=== PATIENT | female | born 1960 | race Caucasian/White ===

== ENCOUNTER → 2017-04-28 | Emergency (ER) | payer OTHER ==
[~2017-04-28] VITALS: Ht 157.5 cm; Wt 59.0 kg
[~2017-04-28] MED LIST: ACETAMINOPHEN325 M1 PO; ADULT LOW DOSE81 MG; ALBUTEROL2 PUFFS/17 IN; ALEVE220 MG PO; B12-METHYL1000 MCG PO; CELEXA20 MG PO; DEPRESSION MED PO; DICLOFENAC SODI75 M3; DICLOFENAC SODI75 M3 PO; HABITROL21 MG/24 H TD; HYDROCODONE-APA1 TA1 PO; MELOXICAM7.5 MG PO; MOTRIN 600MG.600 MG PO; NORCO 325 MG-51 TAB PO; PREDNISONE 20MG20 MG PO; SYMBICORT1 AE1 IH; TRAMADOL 50MG T50 MG PO; TYLENOL ES500 M1 PO; VISTARIL25 MG
--- NOTE | 2017-04-28 16:04 | Urgent Treatment Center Report ---
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 Location if Accident:Work Onset of symptoms date/time:/ or onset unknown for:MEDICAL HX UNKNOWN Have you (or family members/close friends) recently traveled outside the [place]? N If Yes, where/when: Have you had exposure to infectious disease within the past month? TB? Other? Specify: Patient states that she was raking tobacco yesterday when she felt a pop in her left shoulder State that she is now having pain in the shoulder that has continued and she got worried and so she came in to get checked out. State that she is not having any numbness or tingling just having pain when she tries to raise it up ALLERGIES Coded Allergies: No Known Drug Allergies (-- 06/30/16) Home Medications Reported Medications Meloxicam (Meloxicam 7.5MG) 7.5 MG PO DAILY #30 TAB CITALOPRAM HYDROBROMIDE (Citalopram HBr) 20 MG PO DAILY Aspirin (Adult Low Dose Aspirin EC) Diclofenac Sodium (Diclofenac Sodium Dr) Hydroxyzine Pamoate (Vistaril) History Medical History General CAD? No Angina: No VT: No Hypertension? No Hyperlipidemia? No CHF? No DVT? No PE? No COPD? Yes Asthma? No Anemia? No GERD? Yes Gastric ulcers? No GI Bleed? No Hernia? No Thyroid Problems? No Hypothyroidism? No CVA? No Seizures? No Diabetes? No Renal Insuffiency? No UTI? No Stones? No BPH? No GB Disease: No Nephritic Syndrome? No Asplenia? No Hepatitis? No Sickle Cell Disease? No Arthritis? Yes Migraines? No Cataracts? No Glaucoma? No MRSA? No HIV? No TB? No Anxiety? No Depression? Yes Cancer? No Immunization HX DT/Tetanus 1-4 Years Ago Flu 2015- Flu Season Pneumonia Received In Past Surgical Hx Previous Surgery?Y Appendix Family History Family HX Diabetes Yes CAD Yes Hypertension Yes Hyperlipidemia Yes Cancer No TB No Social History Smoking Hx Smoker: Current Every Day Smoker Tobacco: Yes Type Cigarettes Packs/day < 1 Pack Alcohol Alcohol: No Review of Systems All Other Systems Reviewed and Negative Physical Exam Vital Signs Vital Signs Date Time Temp Pulse Resp B/P Pulse O2 O2 Flow FiO2 Ox Delivery Rate 04/28 1527 98.2 71 20 129/84 95 General Appearance normal appearance, WD/WN, no apparent distress Respiratory Status Yes: trachea midline, chest symmetrical. No: respiratory distress. Cardiovascular normal exam, regular rate/rhythm, no peripheral edema Extremities Left shoulder pain after raking tobacco yesterday and feeling a pop in her shoulder, denies numbness, good pulses good cap refill no swelling Pain with movement of arm Neurologic alert, normal exam, oriented x 3 Medical Decision Making LABS/Meds/Orders Pt receiving controlled substance in ED? No Results/Orders Orders Procedure Date/time Status [id number] VIEWS 04/28 153 Active XRAY/CT/US XRAY/CT/US XRAY shoulder XR interpretation by reviewed by me Xray Results no fracture seen Comment Discussed with Dr Anjel Fagan [facility] Progress Notes Comment Patient states that she currently already on a anti-inflammatory medication that she takes twice daily Departure Departure Time of Disposition 1533 Disposition DC Home or Self Care(routine) Clinical Impression Primary Impression: Shoulder strain Qualifiers: Encounter type: initial encounter Laterality: left Qualified Code: S46.912A - Strain of unspecified muscle, fascia and tendon at shoulder and upper arm level, left arm, initial encounter Condition STABLE Referrals LARA MICHAEL (Family): 3 Days-Call Office Patient Instructions DI for Shoulder Sprain, Shoulder Sprain Additional Instructions *RICE, Rest the extremity, Ice 15-20 minutes 3-4 times daily, Compress- wear the topher wrap as discussed as much as possible to help reduce swelling and pain, Elevate the extremity when at rest *Topher wrap is for support and help control swelling, use it except in the shower. Be sure that is not to tight but not to loose either *Elevate when resting *Ibuprofen 600-800mg every 6-8 hours as needed for pain an inflammation. If need something more can take Tylenol in between doses of Ibuprofen to help Immediately follow up for new or worsening of symptoms, or no noticeable improvement over the next 3-5 days Wear sling and follow up with Orthopedics call tomorrow and make appointment Continue to take previously prescribed anti inflammatory medication for pain Discharge Counseling Counseled pt/family regarding diagnosis, test results, medications/RX, home care at 1600
[2017-04-28 16:14] VITALS: BP 129/84
--- NOTE | 2017-04-28 16:50 | RADIOLOGY REPORT PS360 ---
[id number] VIEWS HISTORY: Injury with pain FELT POP YESTERDAY IN LT SHOULDER ORDERING PHYSICIAN: MAX LEACH APRN PATIENT AGE: 57 years COMPARISON: None FINDINGS: No fracture or dislocation. No lytic or blastic change. There is normal mineralization. Moderate subacromial stenosis with a somewhat low-lying distal clavicle and low lying acromion. No significant bony spurring IMPRESSION: Subacromial stenosis otherwise negative
--- OUTSIDE RECORDS SUMMARY | 2017-04-30 17:34 | External Medical Summary Rpt | CCD ---
Demographics Preferred Language Mauritian Marital Status Unknown Orthodox Affiliation Unknown Race Unknown Ethnic Group Unknown Author Author , JOSE E DORANTES Address Unknown Phone jose Immunization No patient found.
--- OUTSIDE RECORDS SUMMARY | 2017-04-30 17:34 | External Medical Summary Rpt | CCD ---
Demographics Preferred Language Citizen Of [place] Marital Status Unknown Orthodoxy Affiliation Unknown Race Unknown Ethnic Group Unknown Author Author , JOSE E DORANTES Address Unknown Phone jose Immunization No patient found.
--- OUTSIDE RECORDS SUMMARY | 2017-04-30 17:34 | External Medical Summary Rpt | CCD ---
Author Author , VUKISHAN Annie JOSE E Address Unknown Phone [email or web address] [email or web address] Care Magazine Editor Name Role Phone A Benedict FRAIRE MD PSC, Keyonna Unavailable Unavailable Benedict FRAIRE MD PSC BHATT ALL, BHATT ALL Unavailable Unavailable FIELD AMB, FIELD AMB Unavailable Unavailable SUNDAR SANDRA, SUNDAR Unavailable Unavailable SANDRA [facility], Unavailable Unavailable [facility] Unavailable Unavailable [facility], [facility], Unavailable Unavailable [facility], Unavailable Unavailable [facility] PETTEY JAM, PETTEY Unavailable Unavailable JAM Purpose Continuity of Care Document - 03-22-2014 through 2016 Problems Code Diagnosis DOS Provider Status [id number] PAIN IN 07-09-2015 [facility] RIGHT KNEE PHYSICIANS GROUP 09306 UNSPECIFIED 01-24-2015 [facility] SITE OF PHYSICIANS ANKLE GROUP SPRAIN AND STRAIN 54038 PAIN IN 01-22-2015 [place] [facility], MEDICAL ANKLE AND IMAGING ASS FOOT 7271 BUNION 01-22-2015 [facility] 7295 PAIN IN 01-22-2015 [place] SOFT MEDICAL TISSUES OF IMAGING ASS LIMB 7350 HALLUX 01-22-2015 [place] [facility] 9597 INJURY 01-22-2015 [place] OTHER&UNSPE MEDICAL CIFIED KNEE IMAGING ASS LEG ANKLE&FOOT 8242 CLOSED 01-09-2015 [place] 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 496 CHRONIC 06-07-2014 Keyonna FRAIRE AIRWAY PSC OBSTRUCTION NEC 3670 HYPERMETROP 03-22-2014 [facility] SHIPMAN Procedures Procedure DOS Code Location Performer Comment THERAPEUT 06343 [facility] SUNDAR 5 PHYSICIAN SANRDA PROPHYLAC S GROUP TIC/DX INJECTION SUBQ/IM INJECTION J1040 [facility] SUNDAR 5 PHYSICIAN SANDRA METHYLPRE S GROUP DNISOLONE ACETATE 80 MG INJECTION J1885 [facility] SUNDAR 5 PHYSICIAN SANDRA KETOROLAC S GROUP TROMETHAM INE PER 15 MG RADEX 73670 [place] [facility] ALL ANKLE 5 MEDICAL COMPLETE IMAGING MINIMUM 3 ASS VIEWS RADEX 53914 [place] [facility] ALL FOOT 5 MEDICAL COMPLETE IMAGING MINIMUM 3 ASS VIEWS RADEX 91130 [place] [facility] ANKLE 5 MEDICAL COMPLETE IMAGING MINIMUM 3 ASS VIEWS RADIOLOGI 03888 [place] [facility] C 5 MEDICAL EXAMINATI IMAGING ON TIBIA ASS & FIBULA 2 VIEWS OPHTH 70303 [facility] 4 GRE GRE XM&EVAL COMPRE NEW PT 1/> VST Encounters Encounter Start End Date Code Location Performer Type Date OFFICE 43793 [facility] SUNDAR OUTPATIEN 5 5 PHYSICIAN SANDRA T VISIT S GROUP 15 MINUTES OFFICE 74728 [facility] HARLEENTEFrank OUTPATIEN 5 5 PHYSICIAN SHAHRZAD T NEW 30 S GROUP MINUTES [facility] - [facility] 5 [facility] INC T OFFICE 06671 [facility] SUN[facility]AR OUTPATIEN 5 5 PHYSICIAN SANDRA T NEW 20 S GROUP MINUTES EMERGENCY 18855 TIFFANIE KWOK 5 5 PHYSICIAN SANDRA [facility] T VISIT MODERATE SEVERITY OFFICE 20478 A C FIELD AMB OUTPATIEN 4 4 YEE KELLEY T VISIT PSC 15 MINUTES
--- OUTSIDE RECORDS SUMMARY | 2017-04-30 17:34 | External Medical Summary Rpt | CCD ---
Author Author , VUKISHAN Organization JOSE E Address Unknown Phone [email or web address] Care Team Providers Care Biological Sciences Professor Name Role Phone Keyonna FRAIRE MD PSC, Keyonna Unavailable Unavailable Benedict FRAIRE MD PSC BHATT ALL, BHATT ALL Unavailable Unavailable FIELD AMB, FIELD AMB Unavailable Unavailable SUNDAR SANDRA, SUNDAR Unavailable Unavailable SANDRA [facility], Unavailable Unavailable [facility] Unavailable Unavailable [facility], [facility], Unavailable Unavailable [facility], Unavailable Unavailable [facility] PETTEY JAM, PETTEY Unavailable Unavailable JAM Purpose Continuity of Care Document - 03-22-2014 through 2016 Problems Code Diagnosis DOS Provider Status [id number] PAIN IN 07-09-2015 [facility] RIGHT KNEE PHYSICIANS GROUP 56111 UNSPECIFIED 01-24-2015 [facility] SITE OF PHYSICIANS ANKLE GROUP SPRAIN AND STRAIN 32301 PAIN IN 01-22-2015 [place] [facility], MEDICAL ANKLE AND IMAGING ASS FOOT 7271 BUNION 01-22-2015 [facility] 7295 PAIN IN 01-22-2015 [place] SOFT MEDICAL TISSUES OF IMAGING ASS LIMB 7350 HALLUX 01-22-2015 [place] [facility] 9597 INJURY 01-22-2015 [place] OTHER&UNSPE MEDICAL CIFIED KNEE IMAGING ASS LEG ANKLE&FOOT 8242 CLOSED 01-09-2015 [place] 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 496 CHRONIC 06-07-2014 Keyonna QUINONES MD PSC OBSTRUCTION NEC 3670 HYPERMETROP 03-22-2014 [facility] SHIPMAN Procedures Procedure DOS Code Location Performer Comment THERAPEUT 36375 [facility] SUNDAR SLATER 5 PHYSICIAN SANDRA PROPHYLAC S GROUP TIC/DX INJECTION SUBQ/IM INJECTION J1040 [facility] SUNDAR 5 PHYSICIAN SANDRA METHYLPRE S GROUP DNISOLONE ACETATE 80 MG INJECTION J1885 [facility] SUNDAR 5 PHYSICIAN SANDRA KETOROLAC S GROUP TROMETHAM INE PER 15 MG RADEX 69003 [place] [facility] ALL ANKLE 5 MEDICAL COMPLETE IMAGING MINIMUM 3 ASS VIEWS RADEX 42263 [place] BHATT ALL FOOT 5 MEDICAL COMPLETE IMAGING MINIMUM 3 ASS VIEWS RADIOLOGI 36363 [place] BHATT ALL C 5 MEDICAL EXAMINATI IMAGING ON TIBIA ASS & FIBULA 2 VIEWS RADEX 94284 [place] [facility] ALL ANKLE 5 MEDICAL COMPLETE IMAGING MINIMUM [address] [facility] 4 GRE GRE XM&EVAL COMPRE NEW PT 1/> VST Encounters Encounter Start End Date Code Location Performer Type Date OFFICE 50406 [facility] SUNDAR OUTPATIEN 5 5 PHYSICIAN SANDRA T VISIT S GROUP 15 MINUTES OFFICE 75069 [facility] PETTEFrank OUTPATIEN 5 5 PHYSICIAN SHAHRZAD T NEW 30 S GROUP MINUTES HOSPITAL [facility]IL[facility] - 5 5 [facility] OUTPATIEN INC T OFFICE 03287 [facility] SUNDAR OUTPATIEN 5 5 PHYSICIAN SANDRA T NEW 20 S GROUP MINUTES EMERGENCY 18361 TIFFANIE KWOK 5 5 PHYSICIAN SANDRA [facility] T VISIT MODERATE SEVERITY OFFICE 12149 Keyonna CASTANEDA AMB OUTPATIEN 4 4 YEE KELLEY T VISIT PSC 15 MINUTES
--- OUTSIDE RECORDS SUMMARY | 2017-04-30 17:34 | External Medical Summary Rpt | CCD ---
Author Author , VUKISHAN Organization JOSE E Address Unknown Phone [email or web address] Care Team Providers Care Spinner Operator Name Role Phone Keyonna FRAIRE MD PSC, Keyonna Unavailable Unavailable Benedict FRAIRE MD PSC BHATT ALL, BHATT ALL Unavailable Unavailable FIELD AMB, FIELD AMB Unavailable Unavailable SUNDAR SANDRA, SUNDAR Unavailable Unavailable SANDRA [facility], Unavailable Unavailable [facility] Unavailable Unavailable [facility], [facility], Unavailable Unavailable [facility], Unavailable Unavailable [facility] PETTEY JAM, PETTEY Unavailable Unavailable JAM Purpose Continuity of Care Document - 03-22-2014 through 2016 Problems Code Diagnosis DOS Provider Status [id number] PAIN IN 07-09-2015 [facility] RIGHT KNEE PHYSICIANS GROUP 46302 UNSPECIFIED 01-24-2015 [facility] SITE OF PHYSICIANS ANKLE GROUP SPRAIN AND STRAIN 12999 PAIN IN 01-22-2015 [facility], MEDICAL ANKLE AND IMAGING ASS FOOT 7271 BUNION 01-22-2015 [facility] 7295 PAIN IN 01-22-2015 [facility] SOFT MEDICAL TISSUES OF IMAGING ASS LIMB 7350 HALLUX 01-22-2015 [facility] 9597 INJURY 01-22-2015 [facility] OTHER&UNSPE MEDICAL CIFIED KNEE IMAGING ASS LEG ANKLE&FOOT 8242 CLOSED 01-09-2015 [facility] 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 496 CHRONIC 06-07-2014 Keyonna QUINONES MD PSC OBSTRUCTION NEC 3670 HYPERMETROP 03-22-2014 [facility] SHIPMAN Procedures Procedure DOS Code Location Performer Comment THERAPEUT 84987 [facility] SUNDAR SLATER 5 PHYSICIAN SANDRA PROPHYLAC S GROUP TIC/DX INJECTION SUBQ/IM INJECTION J1040 [facility] SUNDAR 5 PHYSICIAN SANDRA METHYLPRE S GROUP DNISOLONE ACETATE 80 MG INJECTION J1885 [facility] SUNDAR 5 PHYSICIAN SANDRA KETOROLAC S GROUP TROMETHAM INE PER 15 MG RADEX 40756 [facility] BHATT ALL ANKLE 5 MEDICAL COMPLETE IMAGING MINIMUM 3 ASS VIEWS RADEX 08101 [facility] BHATT ALL FOOT 5 MEDICAL COMPLETE IMAGING MINIMUM 3 ASS VIEWS RADIOLOGI 88587 [facility] BHATT ALL C 5 MEDICAL EXAMINATI IMAGING ON TIBIA ASS & FIBULA 2 VIEWS RADEX 83913 [facility] BHATT ALL ANKLE 5 MEDICAL COMPLETE IMAGING MINIMUM 3 ASS VIEWS OPH 58601 [facility] 4 GRE GRE XM&EVAL COMPRE NEW PT 1/> VST Encounters Encounter Start End Date Code Location Performer Type Date OFFICE 11020 [facility] SUNDAR OUTPATIEN 5 5 PHYSICIAN SANDRA T VISIT S GROUP 15 MINUTES OFFICE 05274 [facility] PETTEFrank OUTPATIEN 5 5 PHYSICIAN SHAHRZAD T NEW 30 S GROUP MINUTES HOSPITAL MATILDE - 5 5 [facility] OUTPATIEN INC T OFFICE 25564 [facility] SUNDAR OUTPATIEN 5 5 PHYSICIAN SANDRA T NEW 20 S GROUP MINUTES EMERGENCY 35083 TIFFANIE KWOK 5 5 PHYSICIAN SANDRA [facility] T VISIT MODERATE SEVERITY OFFICE 64948 Keyonna CASTANEDA AMB OUTPATIEN 4 4 YEE KELLEY T VISIT PSC 15 MINUTES
--- OUTSIDE RECORDS SUMMARY | 2017-04-30 17:34 | External Medical Summary Rpt | CCD ---
Author Author , VUKISHAN Annie JOSE E Address Unknown Phone [email or web address] Care Team Providers Care Air Brush Operator Name Role Phone A Benedict FRAIRE MD PSC, Keyonna Unavailable Unavailable Benedict FRAIRE MD PSC BHATT ALL, BHATT ALL Unavailable Unavailable FIELD AMB, FIELD AMB Unavailable Unavailable SUNDAR SANDRA, SUNDAR Unavailable Unavailable SANDRA [facility], Unavailable Unavailable [facility] Unavailable Unavailable [facility], [facility], Unavailable Unavailable [facility], Unavailable Unavailable [facility] PETTEY JAM, PETTEY Unavailable Unavailable JAM Purpose Continuity of Care Document - 03-22-2014 through 2016 Problems Code Diagnosis DOS Provider Status [id number] PAIN IN 07-09-2015 [facility] RIGHT KNEE PHYSICIANS GROUP 86409 UNSPECIFIED 01-24-2015 [facility] SITE OF PHYSICIANS ANKLE GROUP SPRAIN AND STRAIN 04764 PAIN IN 01-22-2015 [place] JOINT, MEDICAL ANKLE AND IMAGING ASS FOOT 7271 BUNION 01-22-2015 [facility] 7295 PAIN IN 01-22-2015 [place] SOFT MEDICAL TISSUES OF IMAGING ASS LIMB 7350 HALLUX 01-22-2015 [place] [facility] 9597 INJURY 01-22-2015 [place] OTHER&UNSPE MEDICAL CIFIED KNEE IMAGING ASS LEG ANKLE&FOOT 8242 CLOSED 01-09-2015 [place] 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 496 CHRONIC 06-07-2014 Keyonna FRAIRE AIRWAY PSC OBSTRUCTION NEC 3670 HYPERMETROP 03-22-2014 LIBRADO SHIPMAN Procedures Procedure DOS Code Location Performer Comment THERAPEUT 01865 [facility] SUNDAR 5 PHYSICIAN SANDRA PROPHYLAC S GROUP TIC/DX INJECTION SUBQ/IM INJECTION J1040 [facility] SUNDAR 5 PHYSICIAN SANDRA METHYLPRE S GROUP DNISOLONE ACETATE 80 MG INJECTION J1885 [facility] SUNDAR 5 PHYSICIAN ASNDRA KETOROLAC S GROUP TROMETHAM INE PER 15 MG RADEX 14443 [place] BHATT ALL ANKLE 5 MEDICAL COMPLETE IMAGING MINIMUM 3 ASS VIEWS RADEX 40929 [place] BHATT ALL FOOT 5 MEDICAL COMPLETE IMAGING MINIMUM 3 ASS VIEWS RADEX 58334 [place] BHATT ALL ANKLE 5 MEDICAL COMPLETE IMAGING MINIMUM 3 ASS VIEWS RADIOLOGI 62782 [place] BHATT ALL C 5 MEDICAL EXAMINATI IMAGING ON TIBIA ASS & FIBULA 2 VIEWS OPHTH 02151 [facility] 4 GRE GRE XM&EVAL COMPRE NEW PT 1/> VST Encounters Encounter Start End Date Code Location Performer Type Date OFFICE 64922 [facility] SUNDAR OUTPATIEN 5 5 PHYSICIAN SANDRA T VISIT S GROUP 15 MINUTES OFFICE 97514 [facility] HARLEENTEFrank OUTPATIEN 5 5 PHYSICIAN SHAHRZAD T NEW 30 S GROUP MINUTES HOSPITAL MATILDE - 5 5 [facility] OUTPATIEN INC T OFFICE 68877 [facility] SUNDAR OUTPATIEN 5 5 PHYSICIAN SANDRA T NEW 20 S GROUP MINUTES EMERGENCY 72850 TIFFANIE KWOK 5 5 PHYSICIAN SANDRA [facility] T VISIT MODERATE SEVERITY OFFICE 79784 A C FIELD AMB OUTPATIEN 4 4 YEE KELLEY T VISIT PSC 15 MINUTES
== END ==
LOC: UTC 15:16
DX: S46.912A Strain of unspecified muscle, fascia and tendon at shoulder and upper arm level, left arm, initial encounter (principal); X50.3XXA Overexertion from repetitive movements, initial encounter; Y92.63 Factory as the place of occurrence of the external cause; Y99.0 Civilian activity done for income or pay

== ENCOUNTER → 2017-05-02 | Outpatient (CLI) | payer OTHER ==
[2017-05-02 18:17] LABS: AMPHETAMINES/METAMPHETAMINES NEGATIVE ng/mL (<1000)
== END ==
LOC: LAB 13:38
PROVIDERS: Nurse Practitioner Family
DX: M25.512 Pain in left shoulder (principal)

== ENCOUNTER → 2017-05-12 | Outpatient (CLI) | payer OTHER ==
--- NOTE | 2017-05-13 10:52 | RADIOLOGY REPORT PS360 ---
MRI-UP EXT ANY JNT W/O-LT HISTORY: Left shoulder pain with limited range of motion, subacromial stenosis, injury with pain INJURY OF LEFT SHOULDER, INITIAL ENCOUNTER ORDERING PHYSICIAN: CHRISTIANO HARRY MD PATIENT AGE: 57 years COMPARISON: 04/28/2017 TECHNIQUE: Standard multiplanar multiecho sequences are performed without contrast. FINDINGS: Mild subacromial stenosis with a subacromial space of 6 mm. Minimal hypertrophic changes are present along the undersurface of the acromion. There is mild edema at the acromioclavicular joint. No evidence of before meals separation. There is minimal superior dislocation of the humeral head. There is complete tear of the supraspinatus tendon mild retraction of the musculotendinous fibers by approximately 1 cm. There is thickening with slight increased T1 and T2 axial of the supraspinatus tendon. Small amount fluid is present in the subdeltoid region. The infraspinatus tendon appears intact. The subscapularis and teres minor tendons also appear intact. No obvious labral tear. Small amount fluid is present in the subcoracoid region. The bicipital tendon is in place. No obvious fracture or dislocation. No bone bruise apparent. IMPRESSION: 1. Complete tear of supraspinatus tendon with mild retraction of musculotendinous fibers 2. Subacromial stenosis with mild superior location of the humeral head. 3. Small subcoracoid bursa. 4. No evidence of labral tear.
== END ==
LOC: RAD 09:16
DX: S49.92XA Unspecified injury of left shoulder and upper arm, initial encounter (principal)

== ENCOUNTER → 2017-06-07 | Outpatient (CLI) | payer OTHER ==
[2017-06-07 14:48] LABS: HEMOGLOBIN 12.5 g/dL (12.2-16.2); LYMPH # 2.3 K/mm3 (0.7-4.5); LYMPH % 31.6 % (10-50.0)
--- NOTE | 2017-06-07 16:29 | RADIOLOGY REPORT PS360 ---
CHEST(2 VIEWS-NOT PORTABLE) HISTORY: Tobacco use, smoker ORDERING PHYSICIAN: CHRISTIANO HARRY MD PATIENT AGE: 57 years COMPARISON: 06/29/2015 FINDINGS: The cardiomediastinal silhouette and pulmonary vascularity are within normal limits. Hyperinflation with hyperlucency of the lung chowdary consistent with COPD. No lobar consolidation or collapse. Mild scoliosis of the thoracic spine. IMPRESSION: COPD, no change with no acute finding
[2017-06-07 17:53] LABS: BUN 16 mg/dL (7-18)
[2017-06-07 17:54] LABS: GFR (ESTIMATED) 57 ML/MIN (59-)
== END ==
LOC: LAB 14:21
PROVIDERS: Orthopaedic Surgery
DX: M75.102 Unspecified rotator cuff tear or rupture of left shoulder, not specified as traumatic (principal); M75.41 Impingement syndrome of right shoulder; M75.22 Bicipital tendinitis, left shoulder; Z01.812 Encounter for preprocedural laboratory examination